=== PATIENT | female | born 1955 | race African-American/Black ===

== ENCOUNTER 2020-08-25 04:30 | Day surgery (SDC) | payer OTHER ==
[2020-08-24 14:50] VITALS: BMI 33.2
[~2020-08-25 04:30] MED LIST: TOBRAMYCIN/DEXAMETHASONE OPHTH. OINTMENT 1 TUBE TP ONE
[2020-08-25] MEDS ORDERED: ACETAMINOPHEN 325 MG TABLET (FP) PO PRN ×2 (07:29→13:59)
[2020-08-25] MEDS ORDERED: TROPICAMIDE 1% OPHTH SOLN 15 ML BOTTLE ONE (08:52)
[2020-08-25] MEDS: KETOROLAC TROMETHAMINE 0.5% EYE DROP 1 DROP DROPS OP SCH ×3 (09:00→09:10)
[2020-08-25] MEDS: TROPICAMIDE 1% OPHTH SOLN 15 ML BOTTLE OP SCH ×3 (09:00→09:10)
[2020-08-25] MEDS: CIPROFLOXACIN HCL 0.3% OPHTH 2.5ML BOTTLE OP SCH ×3 (09:00→09:30)
[2020-08-25] MEDS: PHENYLEPHRINE 2.5% OPHTH SOLN 15 ML BOTTLE OP SCH ×3 (09:00→09:10)
[2020-08-25] MEDS ORDERED: MIDAZOLAM HCL 2 MG/2 ML SINGLE DOSE VIAL ONE (09:19)
[2020-08-25] MEDS ORDERED: TOBRAMYCIN/DEXAMETHASONE OPHTH. OINTMENT 1 TUBE TP ONE (10:28)
--- NOTE | 2020-08-25 10:38 | HP ---
- Patient Scheduled date of Surgery: 08/25/20 Scheduled Surgical Procedure: Phacoemulsification and cataract extraction with PCIOL Affected Eye: Left Chief Complaint (Indication for surgery): Decreased vision affecting ADLs - Ocular History Other Eye History: Other (pingueculum, dry eye) Eye Medications: moxifloxacin 0/3, ketorolac 0/4 Previous Eye Surgery: none - Medical History Illnesses: Hypertension, Diabetes, Other (Breast Ca s/p mastectomy) Current Medications: Ambulatory Orders Amlodipine Besylate 5 mg PO DAILY 08/24/20 Aspirin [ASA -] 81 mg PO DAILY 08/24/20 Hydrochlorothiazide [Hctz -] 25 mg PO DAILY 08/24/20 Lorazepam [Ativan] 1 mg PO PRN 08/24/20 Metformin HCl [Glucophage] 850 mg PO BID 08/24/20 Allergies/Adverse Reactions: Allergies Allergy/AdvReac Type Severity Reaction Status Date / Time No Known Allergies Allergy Verified 08/25/20 09:37 Ocular Examination - Best Corrected Visual Acuity Distance: Right eye: 20/50 Distance: Left eye: 20/50 - External/Slit Lamp Examination Abnormalities: pingueculum - Intraocular Pressure Intraocular Pressure (mm/Hg) - Right eye: 18 Intraocular Pressure (mm/Hg)-Left eye: 18 - Lens Lens: 2+ NS 3+ cortical change - Vitreous/Retina Vitreous/Retina: C:D 0.15 m/v/p wnl - Special Examination M - Right eye: +2.25-0.50x 105 M - Left eye: +1.75 -0.50 x 105 K - Right eye: 45.49/45.76 x 94 K - Left eye: 46.36/46.38 x 180 AL - Right eye: 22.21 AL - Left eye: 22.16 IOL bag: +23.0 AUOOTO IOL sulcus: 22.0 MN60 AC - Impression Impression: Cataract Left Eye - Plan Plan: Phacoemulsification and cataract extraction - IOL Left eye Post-hospital care will be provided in office on: 08/26/20
--- NOTE | 2020-08-25 11:08 | HP ---
History & Physical Update - History History: No Change - Physical Physical: No Change - Assessment Assessment: No Change - Plan Plan: No Change (H and P reviewed by DR. Bowen from 08/05/2020 no change)
[2020-08-25] MEDS ORDERED: TETRACAINE 0.5% OPHTH SOLN 2 ML BOTTLE TP ONE (11:10)
[2020-08-25] MEDS ORDERED: LIDOCAINE HCL 1% PRESERVATIVE FREE - 30ML VIAL IO ONE (11:13)
[2020-08-25] MEDS ORDERED: CHONDROITIN SU A/HYALUR SOD 1 KIT IO ONE (11:14)
[2020-08-25] MEDS ORDERED: EPINEPHrine/PF 1 MG/1 ML (1:1,000) AMPULE SQ ONE (11:17)
--- NOTE | 2020-08-25 11:33 | OP ---
Ophthalmology Operative Note Pre-Operative Diagnosis: Cataract (cortical) Affected Eye: Left Operation: Phacoemulsification and cataract extraction with PCIOL Findings: cortical cataract left eye Post-Operative Diagnosis: Same as Pre-op Blood Donor Unit Assistant: None Anesthesiologist: Kelly Heath Anesthesia: Topical Specimens Removed: none Estimated blood loss: <1 cc Operative Report Dictated: Yes
--- NOTE | 2020-08-25 11:55 | OP ---
DATE OF OPERATION: 08/25/2020 DATE OF DICTATION: August 25 PREOPERATIVE DIAGNOSIS: Cortical cataract, left eye. POSTOPERATIVE DIAGNOSIS: Cortical cataract, left eye. PROCEDURE: Phacoemulsification and cataract extraction with insertion of posterior chamber intraocular lens, left eye. SURGEON: Susie Gross MD ENVIRONMENTAL ENGINEERING MANAGER: None. ANESTHESIA: Topical. ANESTHESIOLOGIST: Kelly Heath MD OPERATIVE PROCEDURE: The patient received Tetracaine eye drops and was gently sedated and prepped and draped in the usual sterile fashion so as to expose only the left eye. Ophthalmic Betadine was instilled into the inferior fornix and lashes were taped out of the surgical field. An eyelid speculum was placed into the left eye. Paracentesis was made in inferior temporal clear cornea at the limbus. Then 0.5 mL of nonpreserved lidocaine 1% was injected into the anterior chamber and then 1 mL of dilute epinephrine 1:10,000 was injected into the anterior chamber to improve pupillary dilation. Viscoelastic material was instilled into the anterior chamber via the paracentesis. A 2.4-mm keratome blade was then used to create the main incision in temporal clear cornea at the limbus. A continuous curvilinear capsulorhexis was performed using a cystotome and Utrata forceps. Hydrodissection of the lens cortex was performed using BSS on a cannula until the nucleus was noted to be freely rotating. The phacoemulsification tip was then inserted via the main wound and used to scope 2 perpendicular grooves into the lens nucleus. The nucleus was cracked into 4 quadrants. Each quadrant was lifted out of the capsule into the iris plane and individually phacoemulsified. The remaining cortical material was then aspirated using the irrigation/aspiration port. The capsular bag was inflated using ProVisc and a preloaded AcrySof lens model AU00T0 power +23.0 diopters was injected into the capsular bag. It was centered using a Sinskey hook. The residual viscoelastic material was removed from the anterior chamber using irrigation and aspiration. The wound edges were hydrated using BSS. The wound was tested for leakage and was found to be watertight. Tobradex ointment was placed in the eye, and the speculum was removed from the eye, and the eyelid was closed. A sterile dressing and shield were placed over the eye. The patient was transferred to the recovery room in stable condition, told to follow up in 1 day. Ryan [id number]
[2020-08-25 13:02] VITALS: BP 137/73; PULSE 67; TEMP 97
[2020-08-25] MEDS ORDERED: ONDANSETRON 4 MG/2 ML VIAL IVPUSH PRN (13:59)
[2020-08-25] MEDS ORDERED: LACTATED RINGERS SOLUTION 1,000 ML IV SCH (14:00)
== END 2020-08-25 13:02 | disposition home or self-care (01) ==
LOC: JASU-SURG 04:30
PROVIDERS: ATTEND Ophthalmology
PROC: 08RK3JZ Replacement of Left Lens with Synthetic Substitute, Percutaneous Approach (ICD-10-PCS; principal; 2020-08-25 10:30)
DX: H25.012 Cortical age-related cataract, left eye (principal); I10 Essential (primary) hypertension; E11.9 Type 2 diabetes mellitus without complications; Z85.3 Personal history of malignant neoplasm of breast
CPT/HCPCS: 82962

== ENCOUNTER 2020-09-15 04:40 | Day surgery (SDC) | payer OTHER ==
[2020-09-14 07:19] VITALS: BMI 33.2
[~2020-09-15 04:40] MED LIST changes: +BSS (NA/CA/MG/K) BALANCED SALT SOLUTION OPHTH SOLN 15 ML BOTTLE OD ONE; +CHONDROITIN SU A/HYALUR SOD 1 KIT IO ONE; +EPINEPHrine/PF 1 MG/1 ML (1:1,000) AMPULE SQ ONE; +LIDOCAINE HCL 1% PRESERVATIVE FREE - 30ML VIAL IO ONE; +POVIDONE-IODINE 5% OPHTHALMIC PREP 30 ML SOLUTION OD ONE; +TETRACAINE 0.5% OPHTH SOLN 2 ML BOTTLE OD ONE; +TOBRAMYCIN/DEXAMETHASONE OPHTH. OINTMENT 1 TUBE OD ONE; -TOBRAMYCIN/DEXAMETHASONE OPHTH. OINTMENT 1 TUBE TP ONE
[2020-09-15] MEDS ORDERED: POVIDONE-IODINE 5% OPHTHALMIC PREP 30 ML SOLUTION ONE (06:39)
[2020-09-15] MEDS ORDERED: LIDOCAINE HCL/PF 1% SDV 5ML VIAL ONE (06:39)
[2020-09-15] MEDS ORDERED: EPINEPHrine/PF 1 MG/1 ML (1:1,000) AMPULE ONE (06:39)
[2020-09-15] MEDS ORDERED: TETRACAINE 0.5% OPHTH SOLN 2 ML BOTTLE ONE (06:39)
[2020-09-15] MEDS ORDERED: TOBRAMYCIN/DEXAMETHASONE OPHTH. OINTMENT 1 TUBE ONE (06:41)
[2020-09-15] MEDS ORDERED: CHONDROITIN SU A/HYALUR SOD 1 KIT ONE (06:41)
[2020-09-15] MEDS ORDERED: PHENYLEPHRINE 2.5% OPHTH SOLN 15 ML BOTTLE OP SCH (07:30)
[2020-09-15] MEDS ORDERED: TROPICAMIDE 1% OPHTH SOLN 15 ML BOTTLE OP SCH (07:30)
[2020-09-15] MEDS ORDERED: KETOROLAC TROMETHAMINE 0.5% EYE DROP 1 DROP DROPS OP SCH (07:30)
[2020-09-15] MEDS ORDERED: CIPROFLOXACIN HCL 0.3% OPHTH 2.5ML BOTTLE OP SCH (07:30)
[2020-09-15] MEDS ORDERED: CIPROFLOXACIN HCL 0.3% OPHTH 2.5ML BOTTLE ONE (08:11)
[2020-09-15] MEDS ORDERED: KETOROLAC TROMETHAMINE 0.5% EYE DROP 1 DROP DROPS ONE (08:11)
[2020-09-15] MEDS ORDERED: TROPICAMIDE 1% OPHTH SOLN 15 ML BOTTLE ONE (08:11)
[2020-09-15] MEDS ORDERED: MIDAZOLAM HCL 2 MG/2 ML SINGLE DOSE VIAL ONE (08:47)
--- NOTE | 2020-09-15 09:03 | HP ---
- Patient Scheduled date of Surgery: 09/15/20 Scheduled Surgical Procedure: Phacoemulsification and cataract extraction with PCIOL Affected Eye: Right Chief Complaint (Indication for surgery): Decreased vision affecting ADLs - Ocular History Other Eye History: Other (rosa) Eye Medications: moxifloxacin 3/0 Previous Eye Surgery: s/p ce/pciol oS - Medical History Illnesses: Hypertension, Diabetes, Other (breast ca s/p r mastectomy) Current Medications: Ambulatory Orders Amlodipine Besylate 5 mg PO DAILY 08/24/20 Aspirin [ASA -] 81 mg PO DAILY 08/24/20 Hydrochlorothiazide [Hctz -] 25 mg PO DAILY 08/24/20 Lorazepam [Ativan] 1 mg PO PRN 08/24/20 Metformin HCl [Glucophage] 850 mg PO BID 08/24/20 Allergies/Adverse Reactions: Allergies Allergy/AdvReac Type Severity Reaction Status Date / Time No Known Allergies Allergy Verified 09/15/20 08:06 Ocular Examination - Best Corrected Visual Acuity Distance: Right eye: 20/50 Distance: Left eye: 20/20- - External/Slit Lamp Examination Abnormalities: pingeuculum - Intraocular Pressure Intraocular Pressure (mm/Hg) - Right eye: 16 Intraocular Pressure (mm/Hg)-Left eye: 15 - Lens Lens: 2+ NS 2+ cortical - Vitreous/Retina Vitreous/Retina: C:D 0.15 m/v/p wnl - Special Examination M - Right eye: +2.25-0.50 x 105 M - Left eye: -0.25-0.50 x 075 K - Right eye: 45.5/45.79 094 K - Left eye: 445.71/46.50 AL - Right eye: 22.21 AL - Left eye: 22.16 IOL bag: +23.5 AUOOTO IOL sulcus: +22.5 MN60AC IOL AC: +20.5 MTA 4UP - Impression Impression: Cataract Right Eye (cortical) - Plan Plan: Phacoemulsification and cataract extraction - IOL Right eye Post-hospital care will be provided in office on: 09/16/20
--- NOTE | 2020-09-15 09:04 | HP ---
History & Physical Update - History History: No Change - Physical Physical: No Change - Assessment Assessment: No Change - Plan Plan: No Change (H AND P reviewed from Dr. Mattson from 08/05/2020 no changes)
[2020-09-15] MEDS ORDERED: TETRACAINE 0.5% OPHTH SOLN 2 ML BOTTLE OD ONE (09:14)
[2020-09-15] MEDS ORDERED: POVIDONE-IODINE 5% OPHTHALMIC PREP 30 ML SOLUTION OD ONE (09:16)
[2020-09-15] MEDS ORDERED: LIDOCAINE HCL 1% PRESERVATIVE FREE - 30ML VIAL IO ONE (09:22)
[2020-09-15] MEDS ORDERED: CHONDROITIN SU A/HYALUR SOD 1 KIT IO ONE (09:22)
[2020-09-15] MEDS ORDERED: BSS (NA/CA/MG/K) BALANCED SALT SOLUTION OPHTH SOLN 15 ML BOTTLE OD ONE (09:22)
[2020-09-15] MEDS ORDERED: EPINEPHrine/PF 1 MG/1 ML (1:1,000) AMPULE SQ ONE (09:28)
[2020-09-15] MEDS ORDERED: TOBRAMYCIN/DEXAMETHASONE OPHTH. OINTMENT 1 TUBE OD ONE (09:38)
--- NOTE | 2020-09-15 09:42 | OP ---
Ophthalmology Operative Note Pre-Operative Diagnosis: Cataract (cortical) Affected Eye: Right Operation: Phacoemulsification and cataract extraction with PCIOL Findings: cortical cataract right eye Post-Operative Diagnosis: Same as Pre-op Nut Picker: None Anesthesiologist: Paco Marie Anesthesia: Topical Specimens Removed: none Estimated blood loss: < 1 cc Drains & Tubes with Location: none Operative Report Dictated: Yes
[2020-09-15 12:22] VITALS: BP 130/70; PULSE 70; TEMP 97.4
--- NOTE | 2020-09-16 12:50 | OP ---
DATE OF OPERATION: 09/15/2020 DATE OF DICTATION: 09/15/2020 PREOPERATIVE DIAGNOSIS: Cortical cataract, right eye. POSTOPERATIVE DIAGNOSIS: Cortical cataract, right eye. PROCEDURE: Phacoemulsification and cataract extraction with insertion of posterior chamber intraocular lens, right eye. SURGEON: Susie Gross MD HYDRAULIC TESTER: None. ANESTHESIA: Topical. ANESTHESIOLOGIST: Jin Marie MD OPERATIVE PROCEDURE: The patient received Tetracaine eye drops and was gently sedated and prepped and draped in the usual sterile fashion so as to expose only the right eye. Ophthalmic Betadine was instilled into the inferior fornix and lashes were taped out of the surgical field. An eyelid speculum was placed into the right eye. Paracentesis was made in superior temporal clear cornea at the limbus. Then 0.5 mL of nonpreserved lidocaine 1% was injected into the anterior chamber and then 1 mL of dilute epinephrine 1:10,000 was injected into the anterior chamber to improve pupillary dilation. Viscoelastic material was instilled into the anterior chamber via the paracentesis. A 2.4-mm keratome blade was then used to create the main incision in temporal clear cornea at the limbus. A continuous curvilinear capsulorhexis was performed using a cystotome and Utrata forceps. Hydrodissection of the lens cortex was performed using BSS on a cannula until the nucleus was noted to be freely rotating. The phacoemulsification tip was then inserted via the main wound and used to scope 2 perpendicular grooves into the lens nucleus. The nucleus was cracked into 4 quadrants. Each quadrant was lifted out of the capsule into the iris plane and individually phacoemulsified. The remaining cortical material was then aspirated using the irrigation/aspiration port. The capsular bag was inflated using ProVisc and a preloaded AcrySof lens model [id number] power +23.5 diopters was injected into the capsular bag. It was centered using a Sinskey hook. The residual viscoelastic material was removed from the anterior chamber using irrigation and aspiration. The wound edges were hydrated using BSS. The wound was tested for leakage and was found to be watertight. Tobradex ointment was placed in the eye, and the speculum was removed from the eye, and the eyelid was closed. A sterile dressing and shield were placed over the eye. The patient was transferred to the recovery room in stable condition, told to follow up in 1 day. SUSIE GROSS M.D. [id number]
== END 2020-09-15 11:10 | disposition home or self-care (01) ==
LOC: JASU-SURG 04:40
PROVIDERS: ATTEND Ophthalmology
PROC: 08RJ3JZ Replacement of Right Lens with Synthetic Substitute, Percutaneous Approach (ICD-10-PCS; principal; 2020-09-15 09:30)
DX: H26.9 Unspecified cataract (principal); E11.9 Type 2 diabetes mellitus without complications; I10 Essential (primary) hypertension; Z79.84 Long term (current) use of oral hypoglycemic drugs
CPT/HCPCS: 82962